=== PATIENT | male | born 1935 | race Caucasian/White ===

== ENCOUNTER → 2016-10-24 | Outpatient (CLI) | payer MEDICARE, OTHER ==
--- NOTE | 2016-10-24 15:15 | RADRPT ---
PROCEDURE: XR left knee. CLINICAL INDICATION: Knee pain TECHNIQUE: AP weightbearing, PA weightbearing, lateral weight bearing and sunrise views available for review. COMPARISON: 09/10/2016 FINDINGS: The osseous structures are normal in mineralization, architecture and alignment. No fractures are i dentified. No osseous lesions are identified. The joints are unremarkable. The soft tissues are u nremarkable. IMPRESSION: Unremarkable examination RPTAT: [facility] .Coy Simon MD, MD Date Time Electronically viewed and signed by .Coy Simon MD, MD on 10/24/2016 15:15 .B/
== END | disposition home or self-care (01) ==
LOC: HKI 13:51
PROVIDERS: ATTEND Orthopaedic Surgery
DX: S80.02XD Contusion of left knee, subsequent encounter (principal); S83.222D Peripheral tear of medial meniscus, current injury, left knee, subsequent encounter; M25.562 Pain in left knee
CPT/HCPCS: 73564; G0463